=== PATIENT | male | born 1955 | race Caucasian/White ===

== ENCOUNTER 2017-03-02 08:06 | Emergency (ER) | payer BC ==
[~2017-03-02] VITALS: Ht 177.8 cm; Wt 79.0 kg
[2017-03-02 08:07] VITALS: BP 149/76; PULSE 68; RESP 16; TEMP 99.2; O2SAT 97
--- NOTE | 2017-03-02 09:08 | PD ---
HPI Chief Complaint: Cold / Flu Symptoms Time Seen by Provider: 09:08 Travel History International Travel<30 days: No Contact w/Intl Traveler<30days: No Traveled to known affect area: No History of Present Illness HPI 61-year-old male presents with 10 day history of like symptoms including upper respiratory congestion, previous sore throat, and now chest congestion, wheezing, shortness breath, and productive cough. She has pleuritic pain with deep breath and cough. He states no specific fever but has had chills off and on. She is normally very healthy shy who bicycles regularly. He is a nonsmoker. He has history of lung disease or wheezing in the past. Pleuritic pain is 8 out of 10 with deep breath. He has no known drug allergies. PFSH Past Medical History Medical History: Denies Significant Hx Tetanus Vaccination: > 5 Years Influenza Vaccination: No Past Surgical History Surgical History: No Previous Surgery Social History Alcohol Use: Yes (SOCIALLY ) Tobacco Use: No Substance Use: No Allergies-Medications (Allergen,Severity, Reaction): Coded Allergies: No Known Allergies (Unverified , 03/02/17) Reported Meds & Prescriptions Reported Meds & Active Scripts Active No Active Prescriptions or Reported Medications Review of Systems Except as stated in HPI: all other systems reviewed are Neg General / Constitutional: Positive: Fever, Chills (subjective) Eyes: No: Visual changes HENT: Positive: Sore Throat, Rhinitis, Rhinorrhea, Congestion, No: Headaches, Vertigo, Lightheadedness, Nosebleed, Neck Stiffness, Neck Pain, Dental Difficulties, Earache Cardiovascular: No: Chest Pain or Discomfort Respiratory: Positive: Cough, Shortness of Breath, Wheezing, Pleuritic Pain, No : Sneezing, Orthopnea, Hemoptysis, Night Sweats Gastrointestinal: No: Nausea, Vomiting, Diarrhea, Abdominal Pain Genitourinary: No: Dysuria Musculoskeletal: No: Pain Skin: No Rash Neurologic: No: Weakness Psychiatric: No: Depression Endocrine: No: Polydipsia Hematologic/Lymphatic: No: Easy Bruising Physical Exam Narrative GENERAL: Patient appears mildly ill but not septic. SKIN: Warm and dry. Normal color. Normal turgor. No rash. HEAD: Atraumatic. Normocephalic. EYES: Pupils equal and round. No scleral icterus. No injection or drainage. ENT: No nasal bleeding or discharge. Mucous membranes pink and moist. NECK: Trachea midline. Supple and nontender. CARDIOVASCULAR: Regular rate and rhythm. No murmurs gallops or rubs. RESPIRATORY: No accessory muscle use. Diffuse wheezes and rales throughout to auscultation. Breath sounds equal bilaterally. MUSCULOSKELETAL: Extremities without clubbing, cyanosis, or edema. No obvious deformities. NEUROLOGICAL: Awake and alert. No obvious cranial nerve deficits. Motor grossly within normal limits. Five out of 5 muscle strength in the arms and legs. Normal speech. PSYCHIATRIC: Appropriate mood and affect; insight and judgment normal. Data Data Last Documented VS Vital Signs Date Time Temp Pulse Resp B/P (MAP) Pulse Ox O2 Delivery O2 Flow Rate FiO2 03/02/17 10:09 95 21 03/02/17 09:41 Room Air 03/02/17 08:07 99.2 68 16 Orders Orders Electrocardiogram (03/02/17 ) Complete Blood Count With Diff (03/02/17 09:12) Comprehensive Metabolic Panel (03/02/17 09:12) Chest, Pa & Lat (03/02/17 09:12) Ecg Monitoring (03/02/17 09:12) Iv Access Insert/Monitor (03/02/17 09:12) Oximetry (03/02/17 09:12) Sodium Chloride 0.9% Flush (Ns Flush) (03/02/17 09:15) Ceftriaxone Inj (Rocephin Inj) (03/02/17 09:15) Azithromycin (Zithromax) (03/02/17 09:15) Acetaminophen (Tylenol) (03/02/17 09:15) Albuterol-Ipratropium Neb (Duoneb Neb) (03/02/17 09:15) Methylprednisolone So Succ Inj (Solumedr (03/02/17 09:15) Labs Laboratory Tests Test 03/02/17 09:35 [facility] Medical Decision Making Medical Screen Exam Complete: Yes Emergency Medical Condition: Yes Differential Diagnosis Wheezy bronchitis. Pneumonia. Influenza. Narrative Course Patient is medically stable at time of exam. Chest x-ray PA and lateral was ordered. The radiologist reads this chest x-ray as negative, however I feel there is prominence of his lung structures consistent with bronchiolitis. CBC and CMP are ordered. DuoNeb 3 is ordered. Patient is given 1000 mg Rocephin IV. Patient is given 125 mg Solu-Medrol IV. Patient will be continued on azithromycin 500 mg daily for the next 5 days. Patient continued on prednisone 20 mg twice a day 5 days. Patient given albuterol metered-dose inhaler 2 puffs every 4-6 hours when necessary. Patient is to follow with his primary care physician if symptoms do not improve. Diagnosis Primary Impression: Acute wheezy bronchitis Referrals: Primary Care Physician Patient Instructions: Acute Bronchitis (ED), General Instructions, How to Use a Metered-Dose Inhaler (GEN), Wheezing (ED) Additional Instructions: The radiologist reads this chest x-ray as negative, however I feel there is prominence of his lung structures consistent with bronchiolitis. Patient is given 1000 mg Rocephin IV. Patient is given 125 mg Solu-Medrol IV. Patient will be continued on azithromycin 500 mg daily for the next 5 days. Patient continued on prednisone 20 mg twice a day 5 days. Patient given albuterol metered-dose inhaler 2 puffs every 4-6 hours when necessary. Patient is to follow with his primary care physician if symptoms do not improve. Med/Other Pt SpecificInfo: Prescription(s) given Scripts No Active Prescriptions or Reported Meds Disposition: 01 DISCHARGE HOME Condition: Stable Luis Armando Du Mar 02, 2017 09:08
[2017-03-02] MEDS ORDERED: cefTRIAXone INJ 1,000 MG in SODIUM CHLORIDE 0.9% INJ 100 ML IV ONE (09:15)
[2017-03-02] MEDS ORDERED: ACETAMINOPHEN 325 MG TAB PO ONE (09:15)
[2017-03-02] MEDS ORDERED: SODIUM CHLORIDE 0.9% FLUSH 10 ML FLUSH IVF PRN (09:15)
[2017-03-02] MEDS ORDERED: methylPREDNISolone SOD SUCC 125 MG/2 ML VIAL IV PUSH ONE (09:15)
[2017-03-02] MEDS ORDERED: AZITHROMYCIN 250 MG TAB PO ONE (09:15)
--- NOTE | 2017-03-02 09:35 | RADRPT ---
EXAM DATE/TIME: 03/02/2017 09:24 [facility] COMPARISON: No previous studies available for comparison. INDICATIONS : Cough x10 days, chest pains x2 days radiating into left chest wall. MEDICAL HISTORY : None. SURGICAL HISTORY : None. ENCOUNTER: Initial ACUITY: 2 weeks PAIN SCORE: 5/10 LOCATION: Left chest FINDINGS: PA and lateral views of the chest demonstrate the lungs to be symmetrically aerated without evidence of mass, infiltrate or effusion. The cardiomediastinal contours are unremarkable. Osseous structure s are intact. CONCLUSION: Normal examination. Small calcified granuloma right upper lobe Christopher Banks MD on March 02, 2017 at 9:32 Board Certified Radiologist. This report was verified electronically.
[2017-03-02 09:41] VITALS: O2SAT 97
[2017-03-02] MEDS: RESP: ALBUTEROL 2.5 MG/IPRATROPIUM 0.5 MG NEB (SCH) INH ×2 (10:04→10:05)
[2017-03-02 10:09] VITALS: O2SAT 95
[2017-03-02 10:15] LABS: AUTOMATED NEUTROPHIL # 7.8 TH/MM3 (1.8-7.7); BASOPHIL % 0.4 % (0.0-2.0); EOSINOPHIL # 0.1 TH/MM3 (0-0.4); EOSINOPHIL % 1.2 % (0.0-4.0); HEMATOCRIT 43.7 % (39.0-51.0); HEMOGLOBIN 14.8 GM/DL (13.0-17.0); LYMPH % 10.8 % (9.0-44.0); LYMPHOCYTE # 1.1 TH/MM3 (1.0-4.8); MEAN CELL VOLUME 99.2 FL (80.0-100.0); MEAN CORPUSCULAR HEMOGLOBIN 33.6 PG (27.0-34.0); MEAN CORPUSCULAR HGB CONC 33.9 % (32.0-36.0); MEAN PLATELET VOLUME 9.9 FL (7.0-11.0); MONO % 10.9 % (0.0-8.0); MONOCYTE # 1.1 TH/MM3 (0-0.9); NEUT % 76.7 % (16.0-70.0); PLATELET COUNT 194 TH/MM3 (150-450); RED CELL DISTRIBUTION WIDTH 12.9 % (11.6-17.2); WHITE BLOOD COUNT 10.2 TH/MM3 (4.0-11.0)
[2017-03-02] MEDS ORDERED: VENTAER INH (10:20)
[2017-03-02] MEDS ORDERED: AZIT500T2 PO (10:20)
[2017-03-02] MEDS ORDERED: PRED20 PO (10:20)
[2017-03-02 10:38] LABS: ALT (GPT) 25 U/L (12-78)
[2017-03-02 10:40] LABS: ALKALINE PHOSPHATASE 99 U/L (45-117); TOTAL BILIRUBIN ADULT 0.7 MG/DL (0.2-1.0); TOTAL PROTEIN 7.7 GM/DL (6.4-8.2)
[2017-03-02 10:43] LABS: ALBUMIN 3.5 GM/DL (3.4-5.0); AST (GOT) 23 U/L (15-37); BICARBONATE 26.1 MEQ/L (21.0-32.0); BLOOD UREA NITROGEN 12 MG/DL (7-18); CALCIUM 9.1 MG/DL (8.5-10.1); CHLORIDE 103 MEQ/L (98-107); CREATININE 0.99 MG/DL (0.60-1.30); GLOMERULAR FILTRATION RATE 77 ML/MIN (>89); GLUCOSE,RANDOM 108 MG/DL (74-106); SODIUM (NA) 136 MEQ/L (136-145)
[2017-03-02 10:55] VITALS: BP 147/79; PULSE 72; RESP 15; O2SAT 98
--- NOTE | 2017-03-02 11:21 | EKG ---
Date Performed: 03/02/2017 Time Performed: 08:24:24 PTAGE: 61 years EKG: Sinus rhythm NONSPECIFIC T-WAVE ABNORMALITY BORDERLINE ECG NO PREVIOUS TRACING DOCTOR: Christopher Lares Interpretating Date/Time 03/02/2017 11:20:46
== END 2017-03-02 11:34 | disposition home or self-care (01) ==
LOC: NEPD 08:06
DX: J20.9 Acute bronchitis, unspecified (principal); R94.31 Abnormal electrocardiogram [ECG] [EKG]
CPT/HCPCS: 71046; 80053; 85025; 93005; 94640; 94664; 96365; 96366; 96375; 99285; J0696; J2930